=== PATIENT | male | born 1955 | race Caucasian/White ===

== ENCOUNTER → 2017-05-29 | Outpatient (CLI) | payer OTHER ==
[2013-12-25 19:42] VITALS: BP 146/86
--- NOTE | 2017-05-29 15:19 | PCVCIMAG ---
APPROVED REPORT Study performed: 05/29/2017 14:04:49 EXAM: Comprehensive 2D, Doppler, and color-flow Echocardiogram Patient Location: Echo lab Status: routine BSA: 1.95 HR: 72 bpmBP: 142/84 mmHg Rhythm: NSR Other Information Study Quality: Adequate Risk Factors: Cardiac Risk Factors: HTN Indications Aortic Regurgitation 2D Dimensions LVEF(%): 60.80 (>50%) IVSd: 12.93 (7-11mm)LVOT Diam: 21.76 (18-24mm) LVDd: 41.48 mm PWd: 12.52 (7-11mm)Ascending Ao: 38.45 (22-36mm) LVDs: 28.13 (25-40mm) Left Atrium: 33.45 (27-40mm) Aortic Root: 35.80 mm LV Single Plane 4CH: 60.43 % LV Single Plane 2CH: 59.11 %Chang's LVEF: 59.77 % Biplane EF: 59.4 % Volumes Left Atrial Volume (Systole) Single Plane 4CH: 63.68 mLSingle Plane 2CH: 62.72 mL LA ESV Index: 33.00 mL/m2 Aortic Valve AoV Peak Carl.: 2.04 m/s AO Peak Gr.: 16.61 mmHgLVOT Max P.96 mmHg LVOT Max V: 1.58 m/s DUSTIN Vmax: 2.88 cm2 AI Vmax: 4.66 m/s AI [place]: 3.08 m/s2 AI PHT: 444.52 ms Mitral Valve E/A Ratio: 0.8 MV Decel. Time: 375.50 ms MV E Max Carl.: 0.71 m/s MV A Carl.: 0.86 m/s IVRT: 131.49 ms Pulmonary Valve PV Peak Carl.: 0.91 m/sPV Peak Gr.: 3.29 mmHg Pulmonary Vein P Vein S: 0.33 m/sP Vein A: 0.54 m/s P Vein D: 0.46 m/sP Vein A Dur.: 131.5 msec P Vein S/D Ratio: 0.72 Tricuspid Valve TR Peak Carl.: 2.07 m/s TR Peak Gr.: 17.20 mmHg Left Ventricle The left ventricle is normal size. There is normal LV segmental wall motion. There is normal left ventricular wall thickness. Left ventricular systolic function is normal. The left ventricular ejection fraction is within the normal range. Focal region of septal hypertrophy LVEF is 60%. Grade I - abnormal relaxation pattern. Right Ventricle The right ventricle is normal size. The right ventricular systolic function is normal. Atria The left atrium size is normal. The right atrium size is normal. Aortic Valve Aortic valve is probably bicuspid with raphe. Moderate aortic regurgitation. There is no aortic valvular stenosis. Mitral Valve Systolic motion of the anterior mitral leaflet Mild mitral regurgitation. No evidence of mitral valve stenosis. Tricuspid Valve The tricuspid valve is normal in structure. Trace tricuspid regurgitation with PAP of 24 mmHg. Pulmonic Valve The pulmonary valve is normal in structure. There is mild pulmonic valvular regurgitation. Great Vessels The aortic root is normal in size. Mild dilatation of ascending aorta 3.9cm IVC is normal in size and collapses with >50% inspiration Pericardium There is no pericardial effusion. <Conclusion> The left ventricular ejection fraction is within the normal range. Focal region of septal hypertrophy There is normal LV segmental wall motion. LVEF 60%. Grade I diastolic dysfunction Aortic valve is probably bicuspid with raphe. No stenosis. Moderate aortic regurgitation. Systolic motion of the anterior mitral leaflet. Mild LVOT gradient 18mm. Mild mitral regurgitation. Trace tricuspid regurgitation with PAP of 24 mmHg. Mild dilatation of ascending aorta 3.9cm There is no pericardial effusion.
== END | disposition home or self-care (01) ==
LOC: PCVCIMAG 14:33
PROVIDERS: ATTEND Internal Medicine
DX: I08.0 Rheumatic disorders of both mitral and aortic valves (principal)
CPT/HCPCS: 93306

== ENCOUNTER → 2018-01-22 | Outpatient (CLI) | payer OTHER ==
[2013-12-25 19:42] VITALS: BP 146/86
[~2018-01-22] MED LIST: REGADENOSON 0.4 MG/5 ML DISP.SYRIN. IV ONE
--- NOTE | 2018-01-25 08:15 | PCVCIMAG ---
APPROVED REPORT Imaging Protocol: Rest Tc-99m/Stress Tc-99m 1 day Study performed: 01/22/2018 12:23:00 Indication: Dyspnea, Palpitations, Increased Calcium Score Patient Location: Out-Patient Stress Nurse: Susana [place] RN [place] Tech:Jaskaran MIL[place] Ht: 5 ft 8 in Wt: 182 lbs BSA: 1.96 m2 HR: 64 bpm BP: 175/81 mmHg BMI: 27.6 Medical History Medications: Atorvastatin, benazepril Allergies: PCN Cardiac Risk Factors: Age, HTN, Hyperlipidemia, Thoracic Aortic Aneurism Pretest Chest Pain Characteristics: No chest pain Physical Disabilities: Knees Resting Data Rest SPECT myocardial perfusion imaging was performed in supine position 45 minutes following the intravenous injection of 11.7 mCi of Tc-99m Sestamibi. Time of rest injection: 1230 Date: 01/22/2018 Administration Route: IV Administration Site: Right AC Pharmacologic Stress Pharmacologic stress test was performed by injecting Regadenoson 0.4 mg IV push over 10-15 seconds immediately followed by the intravenous injection of 33.0 mCi of Tc-99m Sestamibi. Time of stress injection: 1350 Date: 01/22/2018 Administration Route: IV Administration Site: Right AC Gated Stress SPECT was performed 45 minutes after stress injection. The images were gated to evaluate regional wall motion and calculate left ventricular ejection fraction. Stress Test Details Stress Test: Pharmacologic stress was paired with low level exercise. Reason for pharmacologic stress test: Knees. HRMax Heart Rate (APMHR): 159 bpm Resting HR: 64 bpmTarget HR (85% APMHR): 135 bpm Max HR Achieved: 101 bpm % of APMHR: 63 Recovery HR: 80 bpm BP Resting BP: 175/81 mmHg Recovery BP: 127/67 mmHg ECG Resting ECG: Sinus Rhythm Stress ECG: Sinus Rhythm Maximum ST Deviation: 0 mm Arrhythmia: PVCs(isolated) Recovery ECG: Sinus Rhythm Recovery ST Change: None Recovery ST Deviation: 0 mm Recovery Arrhythmia: None Clinical Reason for Termination: Completed protocol Stress Symptoms: Dyspnea, Lightheaded Exercise duration: 4 min 00 sec Symptoms resolved with caffeine. Stress ECG Conclusion ECG: Non-ischemic Clinical: Non-ischemic Study Quality Study: Good Study Data Post stress, the left ventricular ejection was 72%.. SSS: 0 SRS: 0 SDS: 0 TID = 0.91. Perfusion No evidence of stress induced ischemia or prior myocardial infarction. Wall Motion Normal left ventricular size and function with no regional wall motion abnormalities. Nuclear Conclusion No evidence of stress induced ischemia or prior myocardial infarction. Normal left ventricular size and function with no regional wall motion abnormalities. Post stress, the left ventricular ejection was 72%. Interpreted by: Bubba Mills MD Electronically Approved: 01/22/2018 16:48:14 <Conclusion> ECG: Non-ischemic Clinical: Non-ischemic
== END | disposition home or self-care (01) ==
LOC: PCVCIMAG 15:21
PROVIDERS: ATTEND Internal Medicine
DX: R06.09 Other forms of dyspnea (principal); R00.2 Palpitations
CPT/HCPCS: 78452; 93017; A9500; J2785

== ENCOUNTER → 2018-07-14 | Outpatient (CLI) | payer OTHER ==
[2013-12-25 19:42] VITALS: BP 146/86
--- NOTE | 2018-07-14 09:21 | PCVCIMAG ---
APPROVED REPORT Study performed: 07/14/2018 08:36:22 EXAM: Comprehensive 2D, Doppler, and color-flow Echocardiogram Patient Location: Echo lab Status: routine BSA: 2.00 HR: 62 bpmBP: 158/84 mmHg Rhythm: NSR Other Information Study Quality: Adequate Indications Palpitations bisuspid aortic valve, aortic insufficiency, PSVT 2D Dimensions IVSd: 13.02 (7-11mm)LVOT Diam: 21.76 (18-24mm) LVDd: 48.33 mm PWd: 10.55 (7-11mm)Ascending Ao: 40.02 (22-36mm) LVDs: 34.28 (25-40mm) Left Atrium: 37.13 (27-40mm) Aortic Root: 35.55 mm LV Single Plane 4CH: 64.72 % LV Single Plane 2CH: 75.48 % Biplane EF: 70.7 % Volumes Left Atrial Volume (Systole) Single Plane 4CH: 46.82 mLSingle Plane 2CH: 60.57 mL LA ESV Index: 27.00 mL/m2 Aortic Valve AoV Peak Carl.: 1.99 m/s AO Peak Gr.: 15.80 mmHgLVOT Max P.51 mmHg LVOT Max V: 1.28 m/s DUSTIN Vmax: 2.39 cm2 AI Vmax: 4.05 m/s AI [place]: 2.14 m/s2 AI PHT: 549.55 ms Mitral Valve E/A Ratio: 1.7 MV Decel. Time: 215.88 ms MV E Max Carl.: 1.03 m/s MV A Carl.: 0.61 m/s IVRT: 114.19 ms Pulmonary Valve PV Peak Carl.: 0.84 m/sPV Peak Gr.: 2.84 mmHg Pulmonary Vein P Vein S: 0.28 m/sP Vein A: 0.31 m/s P Vein D: 0.46 m/sP Vein A Dur.: 148.8 msec P Vein S/D Ratio: 0.61 Tricuspid Valve TR Peak Carl.: 2.13 m/s TR Peak Gr.: 18.12 mmHg Left Ventricle The left ventricle is normal size. There is normal LV segmental wall motion. Mild concentric left ventricular hypertrophy. Left ventricular systolic function is normal. The left ventricular ejection fraction is within the normal range. LVEF is 65%. The left ventricular diastolic function is normal. Right Ventricle The right ventricle is normal size. The right ventricular systolic function is normal. Atria The left atrium size is normal. The right atrium size is normal. Aortic Valve Aortic valve is bicuspid with raphe and mild stenosis (Velocity 2m/sec) Moderate aortic regurgitation. There is no aortic valve stenosis. Mitral Valve Mild mitral annular calcification Mild mitral regurgitation. No evidence of mitral valve stenosis. Tricuspid Valve The tricuspid valve is normal in structure. Trace tricuspid regurgitation with PAP of 25 mmHg. Pulmonic Valve The pulmonary valve is normal in structure. There is trace pulmonic valvular regurgitation. Great Vessels The aortic root is normal in size. The ascending aorta is mildly dilated (4.0cm). Sinuses ov Valsalva 4.3cm IVC is normal in size and collapses >50% with inspiration. Pericardium There is no pericardial effusion. There is no pleural effusion. <Conclusion> Left ventricular systolic function is normal. There is normal LV segmental wall motion. LVEF 65%. The left ventricular diastolic function is normal. Aortic valve is bicuspid with raphe and mild stenosis (Velocity 2m/sec) Moderate aortic regurgitation. Mild mitral annular calcification. Mild mitral regurgitation. Trace tricuspid regurgitation with pulmonary artery pressure of 25 mmHg. The ascending aorta is mildly dilated (4.0cm). Sinuses ov Valsalva 4.3cm There is no pericardial effusion.
== END | disposition home or self-care (01) ==
LOC: PCVCIMAG 09:32
PROVIDERS: ATTEND Internal Medicine
DX: I08.0 Rheumatic disorders of both mitral and aortic valves (principal); R00.2 Palpitations; I47.1 Supraventricular tachycardia
CPT/HCPCS: 93306